=== PATIENT | female | born 1960 | race Caucasian/White ===

== ENCOUNTER 2019-02-15 08:18 | Emergency (ER) | payer MEDICARE, MEDICAID ==
[~2019-02-15] VITALS: Ht 167.6 cm; Wt 100.0 kg
[~2019-02-15 08:18] MED LIST: ATE25T PO; COLACE; MOT200T PO; SYN0.0125T PO; ZOV200C PO
[2019-02-15 10:02] VITALS: BP 145/73
== END 2019-02-15 10:55 | disposition home or self-care (01) ==
LOC: ER 08:18
DX: S76.012A Strain of muscle, fascia and tendon of left hip, initial encounter (principal); I10 Essential (primary) hypertension; J45.909 Unspecified asthma, uncomplicated; E11.9 Type 2 diabetes mellitus without complications; M19.90 Unspecified osteoarthritis, unspecified site; G89.29 Other chronic pain; Z88.0 Allergy status to penicillin; Z88.5 Allergy status to narcotic agent; Z88.1 Allergy status to other antibiotic agents; Z88.8 Allergy status to other drugs, medicaments and biological substances; Z79.899 Other long term (current) drug therapy; Z98.890 Other specified postprocedural states; X50.1XXA Overexertion from prolonged static or awkward postures, initial encounter; Y93.89 Activity, other specified; Y92.89 Other specified places as the place of occurrence of the external cause; Y99.8 Other external cause status
CPT/HCPCS: 73552; 99284

== ENCOUNTER 2019-08-07 13:25 | Emergency (ER) | payer MEDICARE, MEDICAID ==
[~2019-08-07] VITALS: Ht 167.6 cm; Wt 102.3 kg
[2019-08-07 13:45] VITALS: BP 158/80
--- NOTE | 2019-08-07 16:15 | NUR ---
PATIENT HAS LICE. MOVED TO ROOM 4. AWAITING DISPOSITON AFTER BEING SEEN BY THE PROVIDER.
[2019-08-07] MEDS ORDERED: FAMO-128 PO (16:33)
[2019-08-07] MEDS ORDERED: PRED10TA23 PO (16:33)
[2019-08-07] MEDS ORDERED: DIPH25CA83 PO (16:33)
[2019-08-07] MEDS ORDERED: PERM60CR19 TP (16:33)
== END 2019-08-07 16:54 | disposition home or self-care (01) ==
LOC: ER 13:25
DX: L27.1 Localized skin eruption due to drugs and medicaments taken internally (principal); T36.1X5A Adverse effect of cephalosporins and other beta-lactam antibiotics, initial encounter; B85.0 Pediculosis due to Pediculus humanus capitis; I10 Essential (primary) hypertension; E11.9 Type 2 diabetes mellitus without complications; M19.90 Unspecified osteoarthritis, unspecified site; G89.29 Other chronic pain; J45.909 Unspecified asthma, uncomplicated; Z88.0 Allergy status to penicillin; Z88.1 Allergy status to other antibiotic agents; Z88.6 Allergy status to analgesic agent; Z88.8 Allergy status to other drugs, medicaments and biological substances; Z79.899 Other long term (current) drug therapy; Z98.890 Other specified postprocedural states; Y92.89 Other specified places as the place of occurrence of the external cause
CPT/HCPCS: 99283

== ENCOUNTER 2019-10-26 09:12 | Emergency (ER) | payer MEDICAID, MEDICARE ==
[~2019-10-26] VITALS: Ht 165.1 cm; Wt 85.0 kg
[~2019-10-26 09:12] MED LIST changes: +DIPH25CA83 PO; +FAMO-128 PO
[2019-10-26] MEDS ORDERED: ketorolac tromethamine 15mg/ml inj. IM ONE (10:10)
[2019-10-26] MEDS ORDERED: HYDR28CR14 TOP (10:27)
[2019-10-26] MEDS ORDERED: IBUP-1985 PO (10:27)
[2019-10-26 10:28] VITALS: BP 159/94
== END 2019-10-26 10:47 | disposition home or self-care (01) ==
LOC: ER 09:13
DX: M25.572 Pain in left ankle and joints of left foot (principal); I10 Essential (primary) hypertension; J45.909 Unspecified asthma, uncomplicated; E11.9 Type 2 diabetes mellitus without complications; M19.90 Unspecified osteoarthritis, unspecified site; G89.29 Other chronic pain; M79.7 Fibromyalgia; M10.9 Gout, unspecified; Z98.890 Other specified postprocedural states; Z88.1 Allergy status to other antibiotic agents; Z88.0 Allergy status to penicillin; Z88.5 Allergy status to narcotic agent; Z79.899 Other long term (current) drug therapy; X50.1XXA Overexertion from prolonged static or awkward postures, initial encounter; Y93.01 Activity, walking, marching and hiking; Y92.89 Other specified places as the place of occurrence of the external cause; Y99.9 Unspecified external cause status
CPT/HCPCS: 29540; 73610; 96372; 99284; J1885

== ENCOUNTER 2020-03-13 14:25 | Emergency (ER) | payer MEDICAID ==
[~2020-03-13] VITALS: Ht 167.6 cm; Wt 104.5 kg
[~2020-03-13 14:25] MED LIST changes: +HYDR28CR14 TOP; +IBUP-1985 PO
[2020-03-13] MEDS ORDERED: TRIA15CR61 TP (16:40)
[2020-03-13] MEDS ORDERED: DOXY-1 PO (16:40)
[2020-03-13 17:00] VITALS: BP 130/76
== END 2020-03-13 16:55 | disposition home or self-care (01) ==
LOC: ER 14:26
DX: L23.9 Allergic contact dermatitis, unspecified cause (principal); L03.116 Cellulitis of left lower limb; L03.115 Cellulitis of right lower limb; I10 Essential (primary) hypertension; J45.909 Unspecified asthma, uncomplicated; E11.9 Type 2 diabetes mellitus without complications; G89.29 Other chronic pain; M79.7 Fibromyalgia; M10.9 Gout, unspecified; Z98.890 Other specified postprocedural states; Z88.1 Allergy status to other antibiotic agents; Z88.0 Allergy status to penicillin; Z88.5 Allergy status to narcotic agent; Z88.8 Allergy status to other drugs, medicaments and biological substances; Z79.899 Other long term (current) drug therapy
CPT/HCPCS: 99283

== ENCOUNTER 2020-03-19 13:43 | Emergency (ER) | payer MEDICARE, MEDICAID ==
[~2020-03-19] VITALS: Ht 167.6 cm; Wt 107.0 kg
[~2020-03-19 13:43] MED LIST changes: +DOXY-1 PO; +TRIA15CR61 TP
[2020-03-19 14:14] VITALS: BP 155/88
[2020-03-19] MEDS ORDERED: FURO-150 PO (16:22)
== END 2020-03-19 16:38 | disposition home or self-care (01) ==
LOC: ER 13:44
DX: M79.604 Pain in right leg (principal); M79.605 Pain in left leg; I10 Essential (primary) hypertension; J45.909 Unspecified asthma, uncomplicated; E11.9 Type 2 diabetes mellitus without complications; M19.90 Unspecified osteoarthritis, unspecified site; G89.29 Other chronic pain; M79.7 Fibromyalgia; M10.9 Gout, unspecified; Z98.890 Other specified postprocedural states; Z88.1 Allergy status to other antibiotic agents; Z88.0 Allergy status to penicillin; Z88.5 Allergy status to narcotic agent; Z79.899 Other long term (current) drug therapy
CPT/HCPCS: 99283

== ENCOUNTER 2020-03-27 17:06 | Emergency (ER) | payer MEDICARE, MEDICAID ==
[~2020-03-27] VITALS: Ht 167.6 cm; Wt 104.0 kg
[~2020-03-27 17:06] MED LIST changes: -DOXY-1 PO; +FURO-150 PO
[2020-03-27 17:54] VITALS: BP 171/76
[2020-03-27 18:26] LABS: BASOPHILS % (AUTO) 0.3 % (0-1); EOSINOPHILS # (AUTO) 0.1 X10'3 (0-0.9); EOSINOPHILS % (AUTO) 0.7 % (0-6); HEMOGLOBIN 12.2 g/dl (12.0-16.0); LYMPHOCYTES # (AUTO) 2.3 X10'3 (1.1-4.8); LYMPHOCYTES % (AUTO) 17.5 % (21-51); MEAN CORPUSCULAR HEMOGLOBIN 30.2 PG (27.0-31.0); MEAN CORPUSCULAR HGB CONC 32.9 g/dL (33.0-36.5); MEAN PLATELET VOLUME 10.2 FL (7.4-10.4); MONOCYTES # (AUTO) 0.8 X10'3 (0-0.9); MONOCYTES % (AUTO) 6.5 % (2-12); NEUTROPHILS # (AUTO) 9.6 X10'3 (1.8-7.7); PLATELET COUNT 280 X10'3 (140-440); RED BLOOD COUNT 4.02 X10'6 (4.20-5.60); WHITE BLOOD COUNT 12.9 X10'3 (4.5-11.0)
[2020-03-27 18:46] LABS: ALANINE AMINOTRANSFERASE 23 U/L (12-78); ALBUMIN 3.3 G/DL (3.4-5.0); ALBUMIN/GLOBULIN RATIO 0.7 (1.1-1.5); ALKALINE PHOSPHATASE 137 IU/L (46-116); ANION GAP 12 (8-16); ASPARTATE AMINO TRANSFERASE 29 U/L (10-37); BILIRUBIN,TOTAL 0.3 MG/DL (0.1-1.0); BLOOD UREA NITROGEN 34 MG/DL (7-18); BUN/CREATININE RATIO 20.4 (6.6-38.0); CALCIUM 9.1 MG/DL (8.5-10.1); CHLORIDE 108 MMOL/L (99-107); CREATININE 1.67 MG/DL (0.40-0.90); GLUCOSE 103 MG/DL (70-104); SODIUM 141 MMOL/L (135-145); TOTAL CARBON DIOXIDE 20.6 MMOL/L (24-32); TOTAL PROTEIN 7.9 G/DL (6.4-8.2); eGFR 32 ML/MIN
[2020-03-27 19:13] LABS: CLARITY,URINE CLEAR (Clear); COLOR,URINE YELLOW (Yellow); GLUCOSE, URINE NEGATIVE (Neg); KETONES,URINE NEGATIVE (Neg); LEUKOCYTE ESTERASE ,URINE NEGATIVE (Neg); NITRITES, URINE NEGATIVE (Neg); OCCULT BLOOD,URINE NEGATIVE (Neg); PH,URINE 5.5 (4.8-8.0); PROTEIN,URINE NEGATIVE (Neg); UROBILINOGEN,URINE 0.2 E.U/dL (0.2-1.0)
[2020-03-27 19:23] LABS: UA COLLECTION TYPE CLN CATCH MIDSTREAM
[2020-03-27] MEDS ORDERED: normal saline 1000ML IV soln IVB ONE (20:40)
--- NOTE | 2020-03-27 21:20 | NUR ---
pt is drinking water PO. IV fluids canceled
[2020-03-27] MEDS ORDERED: MECL-159 PO (21:24)
== END 2020-03-27 21:45 | disposition home or self-care (01) ==
LOC: ER 17:07
DX: E86.0 Dehydration (principal); R42 Dizziness and giddiness; R10.9 Unspecified abdominal pain; R06.02 Shortness of breath; I10 Essential (primary) hypertension; J45.909 Unspecified asthma, uncomplicated; E11.9 Type 2 diabetes mellitus without complications; M19.90 Unspecified osteoarthritis, unspecified site; G89.29 Other chronic pain; Z59.0 Homelessness; Z98.890 Other specified postprocedural states; Z88.0 Allergy status to penicillin; Z88.1 Allergy status to other antibiotic agents; Z88.5 Allergy status to narcotic agent; Z88.8 Allergy status to other drugs, medicaments and biological substances; Z79.899 Other long term (current) drug therapy
CPT/HCPCS: 36415; 80053; 81003; 85025; 93005; 99284

== ENCOUNTER 2020-03-30 11:15 | Emergency (ER) | payer MEDICARE, MEDICAID ==
[~2020-03-30] VITALS: Ht 167.6 cm; Wt 130.0 kg
[~2020-03-30 11:15] MED LIST changes: +MECL-159 PO
[2020-03-30 12:44] LABS: CLARITY,URINE SLIGHTLY CLOUDY (Clear); COLOR,URINE YELLOW (Yellow); GLUCOSE, URINE NEGATIVE (Neg); KETONES,URINE NEGATIVE (Neg); LEUKOCYTE ESTERASE ,URINE SMALL (Neg); NITRITES, URINE NEGATIVE (Neg); OCCULT BLOOD,URINE NEGATIVE (Neg); PROTEIN,URINE NEGATIVE (Neg); UROBILINOGEN,URINE 0.2 E.U/dL (0.2-1.0)
[2020-03-30 12:45] LABS: UA COLLECTION TYPE CLN CATCH MIDSTREAM
[2020-03-30 13:00] LABS: MUCUS STRANDS NONE SEEN /LPF (Neg); SQUAMOUS EPITHELIAL CELL,UR MANY /LPF (FEW); TRANSITIONAL EPI CELLS,URINE FEW /HPF
[2020-03-30 13:02] LABS: BACTERIA,URINE FEW /HPF (Neg); RBC,URINE 0-2 /HPF (0-2)
[2020-03-30 13:04] VITALS: BP 152/85
== END 2020-03-30 13:14 | disposition home or self-care (01) ==
LOC: ER 11:16
DX: R10.9 Unspecified abdominal pain (principal); E66.01 Morbid (severe) obesity due to excess calories; I10 Essential (primary) hypertension; J45.909 Unspecified asthma, uncomplicated; E11.9 Type 2 diabetes mellitus without complications; M19.90 Unspecified osteoarthritis, unspecified site; G89.29 Other chronic pain; R11.2 Nausea with vomiting, unspecified; Z98.890 Other specified postprocedural states; Z59.0 Homelessness; Z88.0 Allergy status to penicillin; Z88.5 Allergy status to narcotic agent; Z88.8 Allergy status to other drugs, medicaments and biological substances; Z79.899 Other long term (current) drug therapy
CPT/HCPCS: 81001; 99284

== ENCOUNTER 2020-04-01 08:35 | Outpatient (CLI) | payer MEDICARE, MEDICAID ==
[2020-04-01 10:44] LABS: BASOPHILS % (AUTO) 0.3 % (0-1); EOSINOPHILS # (AUTO) 0.1 X10'3 (0-0.9); EOSINOPHILS % (AUTO) 1.1 % (0-6); HEMATOCRIT 35.6 % (35.0-45.0); HEMOGLOBIN 11.7 g/dl (12.0-16.0); LYMPHOCYTES # (AUTO) 1.8 X10'3 (1.1-4.8); LYMPHOCYTES % (AUTO) 21.5 % (21-51); MEAN PLATELET VOLUME 10.8 FL (7.4-10.4); MONOCYTES # (AUTO) 0.7 X10'3 (0-0.9); MONOCYTES % (AUTO) 8.7 % (2-12); NEUTROPHILS # (AUTO) 5.7 X10'3 (1.8-7.7); NEUTROPHILS % (AUTO) 68.4 % (42-75); PLATELET COUNT 224 X10'3 (140-440); RED BLOOD COUNT 3.92 X10'6 (4.20-5.60); RED CELL DISTRIBUTION WIDTH 15.7 % (11.5-14.5); WHITE BLOOD COUNT 8.4 X10'3 (4.5-11.0)
[2020-04-01 10:47] LABS: ALANINE AMINOTRANSFERASE 17 U/L (12-78); ALBUMIN 2.8 G/DL (3.4-5.0); ALBUMIN/GLOBULIN RATIO 0.7 (1.1-1.5); ALKALINE PHOSPHATASE 130 IU/L (46-116); ANION GAP 10 (8-16); ASPARTATE AMINO TRANSFERASE 12 U/L (10-37); BILIRUBIN,TOTAL 0.3 MG/DL (0.1-1.0); BLOOD UREA NITROGEN 25 MG/DL (7-18); BUN/CREATININE RATIO 23.6 (6.6-38.0); C-REACTIVE PROTEIN 0.29 MG/DL (0.0-0.5); CALCIUM 8.7 MG/DL (8.5-10.1); CHLORIDE 109 MMOL/L (99-107); CREATININE 1.06 MG/DL (0.40-0.90); GLUCOSE 105 MG/DL (70-104); POTASSIUM 3.6 MMOL/L (3.5-5.1); SODIUM 142 MMOL/L (135-145); TOTAL CARBON DIOXIDE 23.2 MMOL/L (24-32); TOTAL PROTEIN 6.8 G/DL (6.4-8.2); eGFR 53 ML/MIN
[2020-04-01 11:36] LABS: HEMOGLOBIN A1C 6.3 % (4.5-6.2)
== END 2020-04-01 10:27 | disposition home or self-care (01) ==
LOC: WOUND CARE 08:35 → EDSTATUS 09:00 → WOUND CARE 10:27
PROVIDERS: ATTEND Nurse Practitioner
DX: L03.116 Cellulitis of left lower limb (principal); L03.115 Cellulitis of right lower limb; M10.079 Idiopathic gout, unspecified ankle and foot; I10 Essential (primary) hypertension; J45.909 Unspecified asthma, uncomplicated; M19.90 Unspecified osteoarthritis, unspecified site; E66.01 Morbid (severe) obesity due to excess calories; G89.29 Other chronic pain; E86.0 Dehydration; F32.9 Major depressive disorder, single episode, unspecified; F41.9 Anxiety disorder, unspecified; Z86.73 Personal history of transient ischemic attack (TIA), and cerebral infarction without residual deficits; Z90.710 Acquired absence of both cervix and uterus; Z79.899 Other long term (current) drug therapy; Z98.890 Other specified postprocedural states; Z68.37 Body mass index [BMI] 37.0-37.9, adult
CPT/HCPCS: 36415; 80053; 83036; 85025; 85651; 86140; G0463

== ENCOUNTER 2020-04-06 10:08 | Outpatient (CLI) | payer MEDICARE, MEDICAID | END 2020-04-06 12:03 | disposition home or self-care (01) | LOC: WOUND CARE 10:08 | PROVIDERS: ATTEND Nurse Practitioner | DX: L03.116 Cellulitis of left lower limb (principal); L03.115 Cellulitis of right lower limb; M10.079 Idiopathic gout, unspecified ankle and foot; I10 Essential (primary) hypertension; J45.909 Unspecified asthma, uncomplicated; M19.90 Unspecified osteoarthritis, unspecified site; E66.01 Morbid (severe) obesity due to excess calories; G89.29 Other chronic pain; E86.0 Dehydration; F32.9 Major depressive disorder, single episode, unspecified; F41.9 Anxiety disorder, unspecified; Z86.73 Personal history of transient ischemic attack (TIA), and cerebral infarction without residual deficits; Z90.710 Acquired absence of both cervix and uterus; Z79.899 Other long term (current) drug therapy; Z98.890 Other specified postprocedural states; Z68.37 Body mass index [BMI] 37.0-37.9, adult | CPT/HCPCS: 29581; 93925; 93970 ==

== ENCOUNTER 2020-04-13 10:45 | Outpatient (CLI) | payer MEDICARE, MEDICAID | END 2020-04-13 12:27 | disposition home or self-care (01) | LOC: WOUND CARE 10:45 | PROVIDERS: ATTEND Nurse Practitioner Family | DX: L03.116 Cellulitis of left lower limb (principal); L03.115 Cellulitis of right lower limb; M10.079 Idiopathic gout, unspecified ankle and foot; I10 Essential (primary) hypertension; J45.909 Unspecified asthma, uncomplicated; M19.90 Unspecified osteoarthritis, unspecified site; E66.01 Morbid (severe) obesity due to excess calories; G89.29 Other chronic pain; E86.0 Dehydration; F32.9 Major depressive disorder, single episode, unspecified; F41.9 Anxiety disorder, unspecified; Z86.73 Personal history of transient ischemic attack (TIA), and cerebral infarction without residual deficits; Z90.710 Acquired absence of both cervix and uterus; Z79.899 Other long term (current) drug therapy; Z98.890 Other specified postprocedural states; Z68.37 Body mass index [BMI] 37.0-37.9, adult | CPT/HCPCS: 29581 ==

== ENCOUNTER 2020-04-20 09:45 | Outpatient (CLI) | payer MEDICARE, MEDICAID ==
[~2020-04-20 09:45] MED LIST changes: -FURO-150 PO; -TRIA15CR61 TP
== END 2020-04-20 10:45 | disposition home or self-care (01) ==
LOC: WOUND CARE 09:45 → EDSTATUS 10:00 → WOUND CARE 10:45
PROVIDERS: ATTEND Nurse Practitioner Family
DX: L03.116 Cellulitis of left lower limb (principal); L03.115 Cellulitis of right lower limb; M10.079 Idiopathic gout, unspecified ankle and foot; I10 Essential (primary) hypertension; J45.909 Unspecified asthma, uncomplicated; M19.90 Unspecified osteoarthritis, unspecified site; E66.01 Morbid (severe) obesity due to excess calories; G89.29 Other chronic pain; E86.0 Dehydration; F32.9 Major depressive disorder, single episode, unspecified; F41.9 Anxiety disorder, unspecified; Z86.73 Personal history of transient ischemic attack (TIA), and cerebral infarction without residual deficits; Z90.710 Acquired absence of both cervix and uterus; Z79.899 Other long term (current) drug therapy; Z98.890 Other specified postprocedural states; Z68.37 Body mass index [BMI] 37.0-37.9, adult
CPT/HCPCS: G0463

== ENCOUNTER 2020-04-27 08:13 | Outpatient (CLI) | payer MEDICARE, MEDICAID | END 2020-04-27 08:55 | disposition home or self-care (01) | LOC: WOUND CARE 08:13 → EDSTATUS 08:20 → WOUND CARE 08:55 | PROVIDERS: ATTEND Nurse Practitioner Family | DX: L03.116 Cellulitis of left lower limb (principal); L03.115 Cellulitis of right lower limb; M10.079 Idiopathic gout, unspecified ankle and foot; I10 Essential (primary) hypertension; J45.909 Unspecified asthma, uncomplicated; M19.90 Unspecified osteoarthritis, unspecified site; E66.01 Morbid (severe) obesity due to excess calories; G89.29 Other chronic pain; E86.0 Dehydration; F32.9 Major depressive disorder, single episode, unspecified; F41.9 Anxiety disorder, unspecified; Z86.73 Personal history of transient ischemic attack (TIA), and cerebral infarction without residual deficits; Z90.710 Acquired absence of both cervix and uterus; Z79.899 Other long term (current) drug therapy; Z98.890 Other specified postprocedural states; Z68.37 Body mass index [BMI] 37.0-37.9, adult | CPT/HCPCS: G0463 ==

== ENCOUNTER 2020-10-26 13:39 | Outpatient (CLI) | payer MEDICARE, MEDICAID ==
[~2020-10-26 13:39] MED LIST changes: -ATE25T PO; +ATEN-168 PO; -COLACE; -DIPH25CA83 PO; +DOCU100C40 PO; -FAMO-128 PO; +FOLI0.4T14 PO; -HYDR28CR14 TOP; -IBUP-1985 PO; +LISI-642 PO; -MOT200T PO
== END 2020-10-26 23:59 | disposition home or self-care (01) ==
LOC: CARD DIAG 13:39
PROVIDERS: ATTEND Family Medicine
DX: I08.0 Rheumatic disorders of both mitral and aortic valves (principal)
CPT/HCPCS: 93306

== ENCOUNTER 2021-06-24 14:20 | Emergency (ER) | payer MEDICARE, MEDICAID ==
[~2021-06-24] VITALS: Ht 165.1 cm; Wt 102.3 kg
[2021-06-24 20:11] LABS: BASOPHILS % (AUTO) 0.2 % (0-1); EOSINOPHILS # (AUTO) 0.2 X10'3 (0-0.9); HEMATOCRIT 35.4 % (35.0-45.0); HEMOGLOBIN 11.6 g/dl (12.0-16.0); LYMPHOCYTES # (AUTO) 2.2 X10'3 (1.1-4.8); LYMPHOCYTES % (AUTO) 14.1 % (21-51); MEAN CORPUSCULAR HEMOGLOBIN 30.8 PG (27.0-31.0); MEAN CORPUSCULAR HGB CONC 32.6 g/dL (33.0-36.5); MEAN CORPUSCULAR VOLUME 94.3 FL (78-98); MEAN PLATELET VOLUME 9.2 FL (7.4-10.4); MONOCYTES # (AUTO) 1.3 X10'3 (0-0.9); MONOCYTES % (AUTO) 8.5 % (2-12); NEUTROPHILS # (AUTO) 11.7 X10'3 (1.8-7.7); NEUTROPHILS % (AUTO) 76.2 % (42-75); PLATELET COUNT 399 X10'3 (140-440); RED BLOOD COUNT 3.76 X10'6 (4.20-5.60); RED CELL DISTRIBUTION WIDTH 13.6 % (11.5-14.5); WHITE BLOOD COUNT 15.4 X10'3 (4.5-11.0)
[2021-06-24 20:14] LABS: CLARITY,URINE SLIGHTLY CLOUDY (Clear); COLOR,URINE YELLOW (Yellow); GLUCOSE, URINE NEGATIVE (Neg); KETONES,URINE 15 mg/dl (Neg); LEUKOCYTE ESTERASE ,URINE SMALL (Neg); NITRITES, URINE NEGATIVE (Neg); OCCULT BLOOD,URINE NEGATIVE (Neg); PROTEIN,URINE 30 mg/dl (Neg)
[2021-06-24 20:21] LABS: UA COLLECTION TYPE VOIDED
[2021-06-24 20:22] LABS: ALANINE AMINOTRANSFERASE 22 U/L (12-78); ALBUMIN 3.1 G/DL (3.4-5.0); ALBUMIN/GLOBULIN RATIO 0.6 (1.1-1.5); ALKALINE PHOSPHATASE 157 IU/L (46-116); ANION GAP 14 (8-16); ASPARTATE AMINO TRANSFERASE 16 U/L (10-37); BILIRUBIN,TOTAL 0.3 MG/DL (0.1-1.0); BLOOD UREA NITROGEN 27 MG/DL (7-18); CALCIUM 9.7 MG/DL (8.5-10.1); CHLORIDE 103 MMOL/L (99-107); CREATININE 1.93 MG/DL (0.40-0.90); GLUCOSE 105 MG/DL (70-104); POTASSIUM 3.7 MMOL/L (3.5-5.1); SODIUM 143 MMOL/L (135-145); TOTAL CARBON DIOXIDE 26.3 MMOL/L (24-32); TOTAL PROTEIN 8.4 G/DL (6.4-8.2); eGFR 27 ML/MIN
[2021-06-24 20:24] LABS: BACTERIA,URINE 1+ /HPF (Neg); RBC,URINE NONE SEEN /HPF (0-2); WBC,URINE 0-4 /HPF (0-4)
[2021-06-24 20:25] LABS: CAL OXALATE CRYSTALS 1+ /HPF (NEGATIVE); MUCUS STRANDS FEW /LPF (Neg); SQUAMOUS EPITHELIAL CELL,UR MODERATE /LPF (FEW)
--- NOTE | 2021-06-24 21:10 | NUR ---
Good results from enema. Large amount of soft olive colored stool.
[2021-06-24] MEDS ORDERED: IBUP-1984 PO (21:46)
[2021-06-24] MEDS ORDERED: POLY17PO10 PO (21:46)
--- NOTE | 2021-06-24 22:09 | NUR ---
Pt given and understands d/c instructions. Escorted to the lobby via wheelchair. Taxi called to transport pt home.
[2021-06-24 22:11] VITALS: BP 125/82
== END 2021-06-24 22:10 | disposition home or self-care (01) ==
LOC: ER 14:21
DX: K59.00 Constipation, unspecified (principal); R53.1 Weakness; N17.9 Acute kidney failure, unspecified; I10 Essential (primary) hypertension; J45.909 Unspecified asthma, uncomplicated; E11.9 Type 2 diabetes mellitus without complications; M19.90 Unspecified osteoarthritis, unspecified site; G89.29 Other chronic pain; M79.7 Fibromyalgia; M10.9 Gout, unspecified; Z88.2 Allergy status to sulfonamides; Z88.0 Allergy status to penicillin; Z88.8 Allergy status to other drugs, medicaments and biological substances; Z79.2 Long term (current) use of antibiotics; Z79.899 Other long term (current) drug therapy
CPT/HCPCS: 36415; 80053; 81001; 85025; 87077; 87088; 87186; 99283; 99284

== ENCOUNTER 2021-12-17 13:18 | Emergency (ER) | payer MEDICARE, MEDICAID ==
[~2021-12-17] VITALS: Ht 165.1 cm; Wt 100.0 kg
[2021-12-17 14:35] LABS: BASOPHILS % (AUTO) 0.3 % (0-1); EOSINOPHILS # (AUTO) 0.2 X10'3 (0-0.9); EOSINOPHILS % (AUTO) 1.3 % (0-6); HEMATOCRIT 30.9 % (35.0-45.0); HEMOGLOBIN 10.2 g/dl (12.0-16.0); LYMPHOCYTES # (AUTO) 2.5 X10'3 (1.1-4.8); LYMPHOCYTES % (AUTO) 19.7 % (21-51); MEAN CORPUSCULAR HEMOGLOBIN 29.6 PG (27.0-31.0); MEAN CORPUSCULAR HGB CONC 33.1 g/dL (33.0-36.5); MEAN CORPUSCULAR VOLUME 89.5 FL (78-98); MEAN PLATELET VOLUME 10.2 FL (7.4-10.4); MONOCYTES % (AUTO) 7.7 % (2-12); PLATELET COUNT 202 X10'3 (140-440); RED BLOOD COUNT 3.45 X10'6 (4.20-5.60); RED CELL DISTRIBUTION WIDTH 14.1 % (11.5-14.5); WHITE BLOOD COUNT 12.7 X10'3 (4.5-11.0)
[2021-12-17 14:54] LABS: ALANINE AMINOTRANSFERASE 18 U/L (12-78); ALBUMIN 3.3 G/DL (3.4-5.0); ALBUMIN/GLOBULIN RATIO 0.7 (1.1-1.5); ALKALINE PHOSPHATASE 125 IU/L (46-116); ANION GAP 16 (8-16); ASPARTATE AMINO TRANSFERASE 13 U/L (10-37); BILIRUBIN,TOTAL 0.2 MG/DL (0.1-1.0); BLOOD UREA NITROGEN 26 MG/DL (7-18); BUN/CREATININE RATIO 16.4 (6.6-38.0); CALCIUM 8.9 MG/DL (8.5-10.1); CHLORIDE 107 MMOL/L (99-107); CREATININE 1.59 MG/DL (0.40-0.90); GLUCOSE 103 MG/DL (70-104); POTASSIUM 3.5 MMOL/L (3.5-5.1); SODIUM 144 MMOL/L (135-145); TOTAL CARBON DIOXIDE 20.6 MMOL/L (24-32); TOTAL PROTEIN 8.1 G/DL (6.4-8.2); eGFR 33 ML/MIN
[2021-12-17] MEDS ORDERED: furosemide 20MG tablet PO ONE (15:15)
[2021-12-17] MEDS ORDERED: FURO-150 PO ×3 (15:16→15:24)
[2021-12-17] MEDS ORDERED: POTA-207 PO ×6 (15:16→17:04)
[2021-12-17] MEDS ORDERED: carVEDilol 12.5mg tablet PO SCH (15:30)
[2021-12-17] MEDS ORDERED: cloNIDine 0.1 mg tablet PO ONE (16:20)
[2021-12-17 17:18] VITALS: BP 180/90
== END 2021-12-17 17:19 | disposition home or self-care (01) ==
LOC: ER 13:19
DX: R60.0 Localized edema (principal); I10 Essential (primary) hypertension; G43.909 Migraine, unspecified, not intractable, without status migrainosus; J45.909 Unspecified asthma, uncomplicated; E11.9 Type 2 diabetes mellitus without complications; M19.90 Unspecified osteoarthritis, unspecified site; G89.29 Other chronic pain; M10.9 Gout, unspecified; Z98.890 Other specified postprocedural states; Z88.1 Allergy status to other antibiotic agents; Z88.0 Allergy status to penicillin; Z88.5 Allergy status to narcotic agent; Z88.8 Allergy status to other drugs, medicaments and biological substances; Z79.2 Long term (current) use of antibiotics; Z79.899 Other long term (current) drug therapy
CPT/HCPCS: 36415; 71045; 80053; 83880; 84145; 84484; 85025; 93005; 99285

== ENCOUNTER 2022-03-19 14:36 | Emergency (ER) | payer MEDICARE, MEDICAID ==
[~2022-03-19] VITALS: Ht 165.1 cm; Wt 95.5 kg
[~2022-03-19 14:36] MED LIST changes: +POTA-207 PO
[2022-03-19 16:04] VITALS: BP 137/74
== END 2022-03-19 18:57 | disposition left against medical advice (07) ==
LOC: ER 14:36
DX: R53.1 Weakness (principal); Z53.21 Procedure and treatment not carried out due to patient leaving prior to being seen by health care provider